=== PATIENT | male | born 1975 | race Hispanic/Latino ===

== ENCOUNTER 2021-09-14 18:55 | Observation (INO) | payer BC ==
--- NOTE | 2021-09-14 19:29 | Emergency Department Report ---
ED Syncope HPI - General Chief Complaint: Syncope Stated Complaint: SYNCOPE Time Seen by Provider: 09/14/21 19:20 Source: patient, EMS - History of Present Illness Initial Comments: Patient is 46 years old male with history of hypertension and hyperlipidemia. Patient brought to the emergency room via EMS for evaluation of syncopal episode. Patient stated that he was driving from [place] to [place] when all of a sudden his noticed that he is hold his chest and then he passed out. Patient stated that he is back to normal now except for generalized weakness. Patient denied any focal weakness, numbness or tingling sensation. Stroke scale now 0. Timing/Prior Episodes: no prior history, single episode today Precipitating Factors: Positive: none Loss of Consciousness: prolonged (minutes) Current Symptoms: back to normal ED Review of Systems ROS: Stated complaint: SYNCOPE Other details as noted in HPI Comment: All other systems reviewed and negative Constitutional: denies: chills, fever ENT: denies: throat pain Cardiovascular: chest pain (gone). denies: palpitations Gastrointestinal: denies: abdominal pain, nausea, vomiting Musculoskeletal: denies: back pain Neurological: denies: headache, weakness, numbness, paresthesias, confusion, abnormal gait Psychiatric: denies: depression, auditory hallucinations, visual hallucinations, homicidal thoughts, suicidal thoughts ED Past Medical Hx - Past Medical History Hx Hypertension: Yes - Surgical History Past Surgical History?: No ED Physical Exam - General Limitations: Altered Mental Status General appearance: alert, in no apparent distress - Head Head exam: Present: atraumatic, normocephalic, normal inspection - Eye Eye exam: Present: normal appearance - ENT ENT exam: Present: normal exam, normal orophraynx, mucous membranes moist - Neck Neck exam: Present: normal inspection, full ROM. Absent: tenderness, meningismus - Respiratory Respiratory exam: Present: normal lung sounds bilaterally - Cardiovascular Cardiovascular Exam: Present: regular rate, normal rhythm, normal heart sounds - GI/Abdominal GI/Abdominal exam: Present: soft, normal bowel sounds. Absent: distended, tenderness, guarding, rebound, rigid, organomegaly, mass, bruit, pulsatile mass, hernia - Extremities Exam Extremities exam: Present: normal inspection, full ROM, normal capillary refill. Absent: tenderness - Back Exam Back exam: Present: normal inspection, full ROM. Absent: CVA tenderness (R), CVA tenderness (L) - Neurological Exam Neurological exam: Present: alert, oriented X3, CN II-XII intact, normal gait, reflexes normal. Absent: motor sensory deficit - Psychiatric Psychiatric exam: Present: normal mood - Skin Skin exam: Present: warm, intact, normal color ED Course Vital Signs 09/14/21 09/14/21 09/14/21 19:05 19:12 19:15 Temperature 97.9 F Pulse Rate 98 H Respiratory 18 Rate Blood Pressure 142/89 Blood Pressure 135/89 [Right] O2 Sat by Pulse 98 89 95 Oximetry 09/14/21 09/14/21 19:31 19:45 Temperature Pulse Rate 82 82 Respiratory 21 16 Rate Blood Pressure 136/86 132/89 Blood Pressure [Right] O2 Sat by Pulse 94 97 Oximetry ED Medical Decision Making - Lab Data Result diagrams: 09/14/21 19:33 09/14/21 19:33 - EKG Data -: EKG Interpreted by Me EKG shows normal: sinus rhythm Rate: normal - Radiology Data Radiology results: report reviewed - Medical Decision Making Patient is 46 years old male with history of hypertension and hyperlipidemia. Patient brought to the emergency room via EMS for evaluation of syncopal episode. Patient stated that he was driving from [place] to [place] when all of a sudden his noticed that he is hold his chest and then he passed out. Patient stated that he is back to normal now except for generalized weakness. Patient denied any focal weakness, numbness or tingling sensation. Stroke scale now 0. Patient remains symptoms free in the emergency room except for headache for which she received Tylenol. EKG showed sinus rhythm with incomplete right bundle branch block however there is no ST elevation. Labs reviewed and is unremarkable including negative troponin x2. CT brain is negative for acute finding. Chest x-ray is unremarkable. I discussed the patient with Dr. Waterman, he agreed to admit the patient for further management. Critical care attestation.: If time is entered above; I have spent that time in minutes in the direct care of this critically ill patient, excluding procedure time. ED Disposition Clinical Impression: Syncope and collapse Disposition: ADMITTED INPATIENT Is pt being admited?: Yes Condition: Stable Instructions: Syncope (ED)
[2021-09-14 19:52] LABS: Basophils % (Auto) 0.3 % (0.0-1.8); Eosinophils # (Auto) 0.1 K/mm3 (0.0-0.4); Eosinophils % (Auto) 0.6 % (0.0-4.3); Hematocrit 54.3 % (35.5-45.6); Hemoglobin 17.6 gm/dl (11.8-15.2); Lymphocytes # (Auto) 1.4 K/mm3 (1.2-5.4); Lymphocytes % (Auto) 12.2 % (13.4-35.0); Mean Corpuscular HGB Conc 33 % (32-34); Mean Corpuscular Volume 90 fl (84-94); Monocytes # (Auto) 0.6 K/mm3 (0.0-0.8); Monocytes % (Auto) 5.3 % (0.0-7.3); Platelet Count 211 K/mm3 (140-440); Red Blood Count 6.07 M/mm3 (3.65-5.03); Red Cell Distribution Width 13.2 % (13.2-15.2)
[2021-09-14 20:07] LABS: Alanine Aminotransferase 30 units/L (7-56); Albumin 4.8 g/dL (3.9-5); BUN/Creatinine Ratio 16; Blood Urea Nitrogen 21 mg/dL (9-20); Calcium 9.3 mg/dL (8.4-10.2); Hemolysis Index 10
[2021-09-14 20:14] LABS: Bilirubin,Urine NEG (Negative); Blood,Urine MOD (Negative); Color,Urine Straw (Yellow); Mucus,Urine FEW /HPF; RBC,Urine < 1.0 /HPF (0.0-6.0); Urobilinogen,Urine < 2.0 mg/dL (<2.0); WBC,Urine < 1.0 /HPF (0.0-6.0)
--- NOTE | 2021-09-14 20:15 | XRay Report ---
CHEST 1 VIEW INDICATION / CLINICAL INFORMATION: Syncope STUDY TIME: 1940 COMPARISON: None available. FINDINGS: SUPPORT DEVICES: None HEART / MEDIASTINUM: No significant abnormality. LUNGS / PLEURA: Poor degree of inspiration is seen. Mild atelectasis is noted in the right base. No d efinite acute infiltrates are seen. No pneumothorax. ADDITIONAL FINDINGS: No significant additional findings. IMPRESSION: No significant acute abnormality Signer Name: Durga Holman MD Signed: 09/14/2021 8:11 PM Workstation Name: [id number]
[2021-09-14 20:22] LABS: Bilirubin,Direct < 0.2 mg/dL (0-0.2)
[2021-09-14 20:22] LABS: Amphetamine Screen,Urine Negative; Benzodiazepines Screen,Urine Negative; Cannabinoid Screen,Urine Negative; Cocaine Screen,Urine Negative; Methadone Screen,Urine Negative; Opiate Screen,Urine Negative
--- NOTE | 2021-09-14 21:25 | Cat Scan Report ---
CT HEAD WITHOUT CONTRAST INDICATION / CLINICAL INFORMATION: Syncope. TECHNIQUE: All CT scans at this location are performed using CT dose reduction for ALARA by means of automated exposure control. COMPARISON: None available. FINDINGS: HEMORRHAGE: None. EXTRA-AXIAL SPACES: Normal in size and morphology for the patient's age. VENTRICULAR SYSTEM: Normal in size and morphology for the patient's age. CEREBRAL PARENCHYMA: No significant abnormality. No acute territorial infarct. MIDLINE SHIFT / HERNIATION: None. CEREBELLUM / BRAINSTEM: No significant abnormality. ORBITS: Normal as visualized. SOFT TISSUES: No significant abnormality. SKULL: No significant abnormality. PARANASAL SINUSES / MASTOID AIR CELLS: Normal as visualized. ADDITIONAL FINDINGS: None. IMPRESSION: 1. No acute intracranial abnormality. Signer Name: Jacob Salas MD Signed: 09/14/2021 9:20 PM Workstation Name: [email or web address]
[2021-09-14] MEDS ORDERED: ACETAMINOPHEN 500 MG TAB PO NR (21:30)
[2021-09-14] MEDS ORDERED: ONDANSETRON 4 MG/2 ML INJ IV PRN (23:31)
[2021-09-14] MEDS ORDERED: MORPHINE 2 MG/1 ML INJ IV PRN (23:31)
[2021-09-14] MEDS ORDERED: MAGNESIUM HYDROXIDE (MOM) ORAL LIQD UDC PO PRN (23:31)
[2021-09-14] MEDS ORDERED: ACETAMINOPHEN 325 MG TAB PO PRN (23:31)
[2021-09-14] MEDS ORDERED: MORPHINE 4 MG/1 ML INJ IV PRN (23:31)
--- NOTE | 2021-09-14 23:40 | History and Physical Report ---
History of Present Illness Date of examination: 09/14/21 Date of admission: 09/14/2021 Chief complaint: Syncope Collapse History of present illness: 46-year-old male with known history of hypertension and hyperlipidemia brought into the emergency room today by EMS for evaluation of syncopal episode. Was driving from [place] to [place] when his noticed that patient held his chest and suddenly passed out. There has been no history of seizure disorder. No history of urinary or fecal incontinence. No history of headache or dizziness prior to the travel. No fever or chills, no nausea vomiting and no abdominal pain. Patient was not involved in any motor vehicle crash. Upon arrival in the emergency room patient was back to his normal baseline and denies any complaints except for generalized weakness. Work-up in the emergency room today including EKG, troponins, CT scan of the head and labs were unremarkable. Patient has been admitted for evaluation of his syncope and collapse. Past History Past Medical History: hypertension, hyperlipidemia Past Surgical History: No surgical history Social history: no significant social history Family history: no significant family history Medications and Allergies Allergies Allergy/AdvReac Type Severity Reaction Status Date / Time No Known Allergies Allergy Verified 09/14/21 22:49 Active Meds: Active Medications Acetaminophen (Acetaminophen 500 Mg Tab) 1,000 mg PO ONCE NR Stop: 09/14/21 23:59 Last Admin: 09/14/21 22:55 Dose: 1,000 mg Documented by: Acetaminophen (Acetaminophen 325 Mg Tab) 650 mg PO Q4H PRN PRN Reason: Pain MILD(1-3)/Fever >100.5/ORNELAS Magnesium Hydroxide (Magnesium Hydroxide (Mom) Oral Liqd Udc) 30 ml PO Q4H PRN PRN Reason: Constipation Morphine Sulfate (Morphine 2 Mg/1 Ml Inj) 2 mg IV Q4H PRN PRN Reason: Pain, Moderate (4-6) Morphine Sulfate (Morphine 4 Mg/1 Ml Inj) 4 mg IV Q4H PRN PRN Reason: Pain , Severe (7-10) Ondansetron HCl (Ondansetron 4 Mg/2 Ml Inj) 4 mg IV Q8H PRN PRN Reason: Nausea And Vomiting Sodium Chloride (Sodium Chloride 0.9% 10 Ml Flush Syringe) 10 ml IV BID ANDRE Sodium Chloride (Sodium Chloride 0.9% 10 Ml Flush Syringe) 10 ml IV PRN PRN PRN Reason: LINE FLUSH Review of Systems Constitutional: no fever, no chills Ears, nose, mouth and throat: no nasal congestion, no sore throat Cardiovascular: no chest pain, no palpitations Respiratory: no cough, no shortness of breath Gastrointestinal: no abdominal pain, no nausea, no vomiting, no diarrhea Genitourinary Male: no dysuria, no hematuria, no flank pain Musculoskeletal: no neck pain, no low back pain Integumentary: no rash, no pruritis Neurological: syncope, no seizures, no headaches, no confusion Psychiatric: no anxiety, no depression Endocrine: no polyphagia, no polydipsia, no polyuria, no nocturia Exam - Constitutional Vitals: Temp Pulse Resp BP Pulse Ox 97.9 F 78 19 130/88 97 09/14/21 19:05 09/14/21 22:31 09/14/21 22:31 09/14/21 22:31 09/14/21 22:31 General appearance: Present: no acute distress, well-nourished - EENT Eyes: Present: PERRL, EOM intact. Absent: scleral icterus ENT: hearing intact, clear oral mucosa, dentition normal - Neck Neck: Present: supple, normal ROM - Respiratory Respiratory effort: normal Respiratory: bilateral: CTA - Cardiovascular Rhythm: regular Heart Sounds: Present: S1 & S2. Absent: systolic murmur, diastolic murmur, rub, click - Extremities Extremities: no ischemia, pulses intact, pulses symmetrical, No edema, normal temperature, normal color, Full ROM Peripheral Pulses: within normal limits - Abdominal General gastrointestinal: Present: soft, non-tender, non-distended, normal bowel sounds. Absent: mass - Integumentary Integumentary: Present: clear, warm, dry. Absent: rash - Musculoskeletal Musculoskeletal: strength equal bilaterally - Psychiatric Psychiatric: appropriate mood/affect, intact judgment & insight, memory intact, cooperative - Neurologic Neurologic: CNII-XII intact, no focal deficits, moves all extremities HEART Score - HEART Score Troponin: Troponin T < 0.010 ng/mL (0.00-0.029) 09/14/21 21:39 Results - Labs CBC & Chem 7: 09/14/21 19:33 09/14/21 19:33 Labs: Abnormal lab results 09/14/21 09/14/21 Range/Units 19:33 19:33 WBC 11.5 H (4.5-11.0) K/mm3 RBC 6.07 H (3.65-5.03) M/mm3 Hgb 17.6 H (11.8-15.2) gm/dl Hct 54.3 H (35.5-45.6) % Lymph % (Auto) 12.2 L (13.4-35.0) % Seg Neutrophils % 81.6 H (40.0-70.0) % Seg Neutrophils # 9.4 H (1.8-7.7) K/mm3 Sodium 134 L (137-145) mmol/L Chloride 93.2 L (98-107) mmol/L BUN 21 H (9-20) mg/dL Glucose 153 H (75-100) mg/dL Assessment and Plan - Patient Problems (1) Syncope and collapse Current Visit: Yes Status: Acute Plan to address problem: Etiology unclear. We will schedule patient for echocardiogram and carotid Doppler. Patient being closely monitored on telemetry. (2) Hypertension Current Visit: Yes Status: Acute Plan to address problem: We will resume routine home medications once reconciled and monitor vital signs closely. (3) Hyperlipidemia Current Visit: Yes Status: Acute Plan to address problem: We will monitor lipid profile. (4) DVT prophylaxis Current Visit: Yes Status: Acute Plan to address problem: Patient placed on subcutaneous heparin. (5) Full code status Current Visit: Yes Status: Acute Plan to address problem: Patient is full code.
[2021-09-15] MEDS: HEPARIN 5,000 UNIT/1 ML VIAL SUB-Q SCH ×2 (05:27→21:13)
[2021-09-15 06:00] LABS: INR 0.92 (0.87-1.13)
[2021-09-15 06:02] LABS: BUN/Creatinine Ratio 19; Blood Urea Nitrogen 17 mg/dL (9-20); Calcium 8.6 mg/dL (8.4-10.2); Hemolysis Index 7
--- NOTE | 2021-09-15 09:59 | Progress Note ---
Assessment and Plan Assessment and plan: 46-year-old male with known history of hypertension and hyperlipidemia brought into the emergency room today by EMS for evaluation of syncopal episode. The patient was driving from [place] to [place] when his noticed that patient held his chest and suddenly passed out. There has been no history of seizure disorder. No history of urinary or fecal incontinence. No history of headache or dizziness prior to the travel. Work-up in the emergency room today including EKG, troponins, CT scan of the head and labs were unremarkable. 09/15/2021. Await echocardiogram, carotid Doppler and cardiology consultation. History Interval history: No new issues overnight Hospitalist Physical - Constitutional Vitals: Temp Pulse Resp BP Pulse Ox 98.0 F 64 18 129/83 94 09/15/21 07:33 09/15/21 07:33 09/15/21 07:33 09/15/21 07:33 09/15/21 07:33 General appearance: Present: no acute distress, well-nourished - EENT Eyes: Present: PERRL, EOM intact ENT: hearing intact, clear oral mucosa, dentition normal - Neck Neck: Present: supple, normal ROM - Respiratory Respiratory effort: normal Respiratory: bilateral: CTA - Cardiovascular Rhythm: regular Heart Sounds: Present: S1 & S2. Absent: gallop, rub - Extremities Extremities: no ischemia, No edema, Full ROM - Abdominal General gastrointestinal: soft, non-tender, non-distended, normal bowel sounds - Integumentary Integumentary: Present: clear, warm, dry - Neurologic Neurologic: CNII-XII intact, moves all extremities HEART Score - HEART Score Troponin: Troponin T < 0.010 ng/mL (0.00-0.029) 09/14/21 21:39 Results - Labs CBC & Chem 7: 09/14/21 19:33 09/15/21 04:44 Labs: Laboratory Last Values WBC 11.5 K/mm3 (4.5-11.0) H 09/14/21 19:33 RBC 6.07 M/mm3 (3.65-5.03) H 09/14/21 19:33 Hgb 17.6 gm/dl (11.8-15.2) H 09/14/21 19:33 Hct 54.3 % (35.5-45.6) H 09/14/21 19:33 MCV 90 fl (84-94) 09/14/21 19:33 MCH 29 pg (28-32) 09/14/21 19:33 MCHC 33 % (32-34) 09/14/21 19:33 RDW 13.2 % (13.2-15.2) 09/14/21 19:33 Plt Count 211 K/mm3 (140-440) 09/14/21 19:33 Lymph % (Auto) 12.2 % (13.4-35.0) L 09/14/21 19:33 [place] % (Auto) 5.3 % (0.0-7.3) 09/14/21 19:33 Eos % (Auto) 0.6 % (0.0-4.3) 09/14/21 19:33 Baso % (Auto) 0.3 % (0.0-1.8) 09/14/21 19:33 Lymph # (Auto) 1.4 K/mm3 (1.2-5.4) 09/14/21 19:33 [place] # (Auto) 0.6 K/mm3 (0.0-0.8) 09/14/21 19:33 Eos # (Auto) 0.1 K/mm3 (0.0-0.4) 09/14/21 19:33 Baso # (Auto) 0.0 K/mm3 (0.0-0.1) 09/14/21 19:33 Seg Neutrophils % 81.6 % (40.0-70.0) H 09/14/21 19:33 Seg Neutrophils # 9.4 K/mm3 (1.8-7.7) H 09/14/21 19:33 PT 13.4 Sec. (12.2-14.9) 09/15/21 04:44 INR 0.92 (0.87-1.13) 09/15/21 04:44 D-Dimer < 135.00 ng/mlDDU (0-234) 09/14/21 19:33 Sodium 139 mmol/L (137-145) 09/15/21 04:44 Potassium 3.5 mmol/L (3.6-5.0) L 09/15/21 04:44 Chloride 98.4 mmol/L (98-107) 09/15/21 04:44 Carbon Dioxide 24 mmol/L (22-30) 09/15/21 04:44 Anion Gap 20 mmol/L 09/15/21 04:44 BUN 17 mg/dL (9-20) 09/15/21 04:44 Creatinine 0.9 mg/dL (0.8-1.3) 09/15/21 04:44 Estimated GFR > 60 ml/min 09/15/21 04:44 BUN/Creatinine Ratio 19 % 09/15/21 04:44 Glucose 132 mg/dL (75-100) H 09/15/21 04:44 Calcium 8.6 mg/dL (8.4-10.2) 09/15/21 04:44 Total Bilirubin 0.20 mg/dL (0.1-1.2) 09/14/21 19:33 Direct Bilirubin < 0.2 mg/dL (0-0.2) 09/14/21 19:33 Indirect Bilirubin 0.0 mg/dL 09/14/21 19:33 AST 21 units/L (5-40) 09/14/21 19:33 ALT 30 units/L (7-56) 09/14/21 19:33 Alkaline Phosphatase 62 units/L (35-129) 09/14/21 19:33 Troponin T < 0.010 ng/mL (0.00-0.029) 09/14/21 21:39 Total Protein 7.3 g/dL (6.3-8.2) 09/14/21 19:33 Albumin 4.8 g/dL (3.9-5) 09/14/21 19:33 Albumin/Globulin Ratio 1.9 % 09/14/21 19:33 Urine Color Straw (Yellow) 09/14/21 19:52 Urine Turbidity Clear (Clear) 09/14/21 19:52 Urine pH 5.0 (5.0-7.0) 09/14/21 19:52 Ur Specific [place] 1.014 (1.003-1.030) 09/14/21 19:52 Urine Protein 100 mg/dl mg/dL (Negative) 09/14/21 19:52 Urine Glucose (UA) Neg mg/dL (Negative) 09/14/21 19:52 Urine Ketones Neg mg/dL (Negative) 09/14/21 19:52 Urine Blood Mod (Negative) 09/14/21 19:52 Urine Nitrite Neg (Negative) 09/14/21 19:52 Urine Bilirubin Neg (Negative) 09/14/21 19:52 Urine Urobilinogen < 2.0 mg/dL (<2.0) 09/14/21 19:52 Ur Leukocyte Esterase Neg (Negative) 09/14/21 19:52 Urine WBC (Auto) < 1.0 /HPF (0.0-6.0) 09/14/21 19:52 Urine RBC (Auto) < 1.0 /HPF (0.0-6.0) 09/14/21 19:52 U Epithel Cells (Auto) < 1.0 /HPF (0-13.0) 09/14/21 19:52 Urine Mucus Few /HPF 09/14/21 19:52 Urine Opiates Screen Negative 09/14/21 Unknown Urine Methadone Screen Negative 09/14/21 Unknown Ur Barbiturates Screen Negative 09/14/21 Unknown Ur Phencyclidine Scrn Negative 09/14/21 Unknown Ur Amphetamines Screen Negative 09/14/21 Unknown U Benzodiazepines Scrn Negative 09/14/21 Unknown Urine Cocaine Screen Negative 09/14/21 Unknown U Marijuana (THC) Screen Negative 09/14/21 Unknown Drugs of Abuse Note Disclamer 09/14/21 Unknown Mckeon/IV: Voiding Method Toilet Active Medications - Current Medications Current Medications: Generic Name Dose Route Start Last Admin Trade Name Freq PRN Reason Stop Dose Admin Acetaminophen 650 mg 09/14/21 23:31 Acetaminophen 325 Mg Tab PO Q4H PRN Pain MILD(1-3)/Fever >100.5/ORNELAS Heparin Sodium (Porcine) 5,000 unit 09/15/21 06:00 09/15/21 05:27 Heparin 5,000 Unit/1 Ml Vial SUB-Q 5,000 unit Q8HR ANDRE Administration Magnesium Hydroxide 30 ml 09/14/21 23:31 Magnesium Hydroxide (Mom) Oral Liqd Udc PO Q4H PRN Constipation Morphine Sulfate 2 mg 09/14/21 23:31 Morphine 2 Mg/1 Ml Inj IV Q4H PRN Pain, Moderate (4-6) Morphine Sulfate 4 mg 09/14/21 23:31 Morphine 4 Mg/1 Ml Inj IV Q4H PRN Pain , Severe (7-10) Ondansetron HCl 4 mg 09/14/21 23:31 Ondansetron 4 Mg/2 Ml Inj IV Q8H PRN Nausea And Vomiting Sodium Chloride 10 ml 09/15/21 10:00 Sodium Chloride 0.9% 10 Ml Flush Syringe IV BID ANDRE Sodium Chloride 10 ml 09/14/21 23:31 Sodium Chloride 0.9% 10 Ml Flush Syringe IV PRN PRN LINE FLUSH
--- NOTE | 2021-09-15 10:24 | Consultation ---
History of Present Illness Consult date: 09/15/21 Consult reason: syncope History of present illness: 46-year-old man who presented to the emergency room following a syncope. He was on a long distance trip, from [place] to [place], [address] his noticed him slumped over and was unconscious for a period of time. There was diaphoresis, patient states that he bit his tongue but no seizures where reported. He is now fully awake and alert and oriented x3, denies any palpitations or chest pain or unusual shortness of breath. There is no history of prior syncope, no significant cardiac history. Past medical history only of hypertension for which he takes amlodipine. ECG was normal sinus rhythm, left ventricle hypertrophy by voltage, otherwise normal ECG. Serial cardiac enzymes were normal. Chest x-ray was normal-sized cardiac silhouette and clear lungs. Today he underwent an echocardiogram which shows normal left ventricular systolic function, mild concentric left ventricle hypertrophy, trace to mild mitral regurgitation and mild aortic regurgitation. Full report of the echocardiogram is pending. Past History Past Medical History: hypertension, hyperlipidemia Past Surgical History: No surgical history Social history: no significant social history Family history: no significant family history Medications and Allergies Allergies Allergy/AdvReac Type Severity Reaction Status Date / Time No Known Allergies Allergy Verified 09/14/21 22:49 Home Medications Medication Instructions Recorded Confirmed Last Taken Type Sertraline [Zoloft] 100 mg PO QDAY 09/15/21 09/15/21 Unknown History Simvastatin 20 mg PO DAILY 09/15/21 09/15/21 Unknown History Testosterone Cypionate 100 mg IM Q5D 09/15/21 09/15/21 Unknown History [Depo-Testosterone] amLODIPine [Norvasc] 5 mg PO DAILY 09/15/21 09/15/21 Unknown History hydroCHLOROthiazide [Hctz] 12.5 mg PO QDAY 09/15/21 09/15/21 Unknown History Active Meds: Active Medications Acetaminophen (Acetaminophen 325 Mg Tab) 650 mg PO Q4H PRN PRN Reason: Pain MILD(1-3)/Fever >100.5/ORNELAS Heparin Sodium (Porcine) (Heparin 5,000 Unit/1 Ml Vial) 5,000 unit SUB-Q Q8HR ANDRE Last Admin: 09/15/21 05:27 Dose: 5,000 unit Documented by: Magnesium Hydroxide (Magnesium Hydroxide (Mom) Oral Liqd Udc) 30 ml PO Q4H PRN PRN Reason: Constipation Morphine Sulfate (Morphine 2 Mg/1 Ml Inj) 2 mg IV Q4H PRN PRN Reason: Pain, Moderate (4-6) Morphine Sulfate (Morphine 4 Mg/1 Ml Inj) 4 mg IV Q4H PRN PRN Reason: Pain , Severe (7-10) Ondansetron HCl (Ondansetron 4 Mg/2 Ml Inj) 4 mg IV Q8H PRN PRN Reason: Nausea And Vomiting Sodium Chloride (Sodium Chloride 0.9% 10 Ml Flush Syringe) 10 ml IV BID ANDRE Sodium Chloride (Sodium Chloride 0.9% 10 Ml Flush Syringe) 10 ml IV PRN PRN PRN Reason: LINE FLUSH Review of Systems Cardiovascular: syncope, no chest pain, no orthopnea, no palpitations, no rapid/irregular heart beat, no edema, no lightheadedness, no shortness of breath Physical Examination Vital Signs Temp Pulse Resp BP Pulse Ox 97.9 F 98 H 18 135/89 98 09/14/21 19:05 09/14/21 19:05 09/14/21 19:05 09/14/21 19:05 09/14/21 19:05 General appearance: no acute distress HEENT: Positive: PERRL Neck: Positive: neck supple Cardiac: Positive: Reg Rate and Rhythm Lungs: Positive: clear to auscultation Neuro: Positive: Grossly Intact Abdomen: Positive: Soft Male genitourinary: Positive: deferred Skin: Positive: Clear Extremities: Absent: edema Results 09/14/21 19:33 09/15/21 04:44 Cardiac Enzymes 09/14/21 Range/Units 19:33 AST 21 (5-40) units/L Coagulation 09/15/21 Range/Units 04:44 PT 13.4 (12.2-14.9) Sec. INR 0.92 (0.87-1.13) CBC 09/14/21 Range/Units 19:33 WBC 11.5 H (4.5-11.0) K/mm3 RBC 6.07 H (3.65-5.03) M/mm3 Hgb 17.6 H (11.8-15.2) gm/dl Hct 54.3 H (35.5-45.6) % Plt Count 211 (140-440) K/mm3 Lymph # (Auto) 1.4 (1.2-5.4) K/mm3 [place] # (Auto) 0.6 (0.0-0.8) K/mm3 Eos # (Auto) 0.1 (0.0-0.4) K/mm3 Baso # (Auto) 0.0 (0.0-0.1) K/mm3 Comprehensive Metabolic Panel 09/14/21 09/15/21 Range/Units 19:33 04:44 Sodium 134 L 139 (137-145) mmol/L Potassium 3.6 3.5 L (3.6-5.0) mmol/L Chloride 93.2 L 98.4 (98-107) mmol/L Carbon Dioxide 23 24 (22-30) mmol/L BUN 21 H 17 (9-20) mg/dL Creatinine 1.3 0.9 (0.8-1.3) mg/dL Glucose 153 H 132 H (75-100) mg/dL Calcium 9.3 8.6 (8.4-10.2) mg/dL Direct Bilirubin < 0.2 (0-0.2) mg/dL Indirect Bilirubin 0.0 mg/dL AST 21 (5-40) units/L ALT 30 (7-56) units/L Alkaline Phosphatase 62 (35-129) units/L Total Protein 7.3 (6.3-8.2) g/dL Albumin 4.8 (3.9-5) g/dL EKG interpretations - Telemetry EKG Rhythm: Sinus Rhythm Assessment and Plan - Patient Problems (1) Syncope and collapse Current Visit: Yes Status: Acute Plan to address problem: Patient presented with syncope, differential diagnosis include a vasodepressor reaction versus neurocardiogenic syncope. ECG, enzymes and echocardiogram appear unremarkable. Telemetry monitoring so far has not reported any s ignificant dysrhythmias. We will recommend a CT angiogram of the chest, PE protocol, given the patient's event occurring at the end of a 4-hour drive. If negative, we will order a regular stress test predischarge tomorrow.
--- NOTE | 2021-09-15 13:49 | Vascular Lab Report ---
DUPLEX DOPPLER ULTRASOUND CAROTID, BILATERAL INDICATION / CLINICAL INFORMATION: Syncope. COMPARISON: None available. FINDINGS: RIGHT CAROTID: No significant atherosclerotic plaque. - PLAQUE ESTIMATE (%): < 50% - CCA velocity: 98 cm/sec. - ICA peak systolic velocity: 83 cm/sec. - ICA/CCA PSV Ratio: Less than 2. Right Vertebral Artery: Antegrade flow. LEFT CAROTID: No significant atherosclerotic plaque. - PLAQUE ESTIMATE (%): < 50% - CCA velocity: 86 cm/sec. - ICA peak systolic velocity: 65 cm/sec. - ICA/CCA PSV Ratio: Less than 2. Left Vertebral Artery: Antegrade flow. IMPRESSION: 1. Right Internal Carotid Artery: Normal. No stenosis. 2. Left Internal Carotid Artery: Normal. No stenosis. Velocity criteria are extrapolated from diameter data as defined by the Society of Radiologists in Ul trasound Consensus Conference, Radiology 2003; 229;340-346. NO STENOSIS (NORMAL) - Plaque = none; ICA PSV < 125 cm/sec; ICA/CCA PSV Ratio < 2.0 <50% STENOSIS - Plaque < 50%; ICA PSV < 125 cm/sec; ICA/CCA PSV Ratio < 2.0 50-69% STENOSIS - Plaque > 50%; ICA PSV = 125-230 cm/sec; ICA/CCA PSV Ratio = 2.0-4.0 >70% BUT <100% STENOSIS - Plaque > 50%; ICA PSV > 230 cm/sec; ICA/CCA PSV Ratio > 4.0 NEAR OCCLUSION - Plaque = visible lumen; ICA PSV = high/low/none; ICA/CCA PSV Ratio = variable TOTAL OCCLUSION - Plaque = no lumen; ICA PSV = none; ICA/CCA PSV Ratio = N/A Scribed by: Araceli Aguilar RDMS, HARRIETTT Scribed: 09/15/2021 11:26 AM I have reviewed the images, agree with this report, and edited this report as needed. Signer Name: Jordan Hodgson MD Signed: 09/15/2021 1:45 PM Workstation Name: [id number]
--- NOTE | 2021-09-15 15:26 | Cat Scan Report ---
CTA CHEST WITH CONTRAST INDICATION / CLINICAL INFORMATION: Syncope/PE protocol OMNI 350 100ML. TECHNIQUE: Axial CT images were obtained through the chest after injection of IV contrast. 3 plane IN P and/or 3D reconstructions were produced. All CT scans at this location are performed using CT dose reduction for ALARA by means of automated exposure control. COMPARISON: None available. FINDINGS: PULMONARY ARTERIES: No pulmonary emboli. THORACIC AORTA: No significant abnormality. HEART: No significant abnormality. CORONARY ARTERY CALCIFICATION: None. MEDIASTINUM / LAURA: No significant abnormality. PLEURA: No pleural effusion. No pneumothorax. LUNGS: No acute air space or interstitial disease. ADDITIONAL FINDINGS: None. UPPER ABDOMEN: There is a approximately 5.5 x 6.3 cm enhancing lesion in the right hepatic lobe, whic h appears to be supplied by a replaced right hepatic artery off the SMA. SKELETAL STRUCTURES: No significant osseous abnormality. IMPRESSION: 1. No CT evidence for pulmonary embolism. 2. No acute intrathoracic abnormality. 3. Incidental enhancing lesion in the right hepatic lobe is nonspecific but favors hemangioma. Recomm end dedicated multiphase abdominal CT. Signer Name: Jacob aSlas MD Signed: 09/15/2021 3:21 PM Workstation Name: [id number]
--- NOTE | 2021-09-15 18:36 | Electrocardiograph Report ---
[facility] Test Date: 2021-09-14 Test Time: 21:12:43 Pat Name: REJI EGAN Department: Room: A466 1 Gender: M Social Service Coordinator: jozef : 1975 Requested By: SHELIA MEDINA Order Number: [id number] Reading MD: Elaine Worrell Measurements Intervals [place] Rate: 83 P: 42 MS: 137 QRS: -26 QRSD: 113 T: -4 QT: 378 QTc: 444 Interpretive Statements Sinus rhythm Incomplete right bundle branch block Left ventricular hypertrophy No previous ECG available for comparison Electronically Signed On 09-15-2021 18:36:21 EST by Elaine Worrell
[2021-09-16] MEDS ORDERED: REGADENOSON 0.4 MG/5 ML INJ IV ONE (07:48)
[2021-09-16] MEDS: HEPARIN 5,000 UNIT/1 ML VIAL SUB-Q SCH ×2 (07:51→07:52)
--- NOTE | 2021-09-16 08:16 | Discharge Summary ---
Providers - Providers Date of Admission: 09/15/21 00:20 Date of discharge: 09/16/21 Attending physician: NAIMA MESSER 09/15/21 09:04 Consult to Physician [CONS] Routine Comment: Consulting Provider: JIM ALBERTO Physician Instructions: Reason For Exam: syncope Primary care physician: ACCOUNTING SYSTEM EXPERT Hospitalization Reason for admission: syncope Condition: Stable Hospital course: 46-year-old male with past medical history of hypertension presented through the emergency room with diagnosis of syncope. Patient had no reports of any seizure activity. No bowel or bladder incontinence. No history of prior syncope. Cardiology was consulted for syncope. Patient was noted to have EKG with normal sinus rhythm and serial cardiac isoenzymes were also normal. Chest x-ray was unremarkable. Patient had echocardiogram which revealed left ventricular systolic function normal with mild concentric left ventricular hypertrophy and trace to mild mitral regurgitation and mild aortic regurgitation. Carotid Doppler was also found to be negative. D-dimer and CTA of the chest were found to be normal. Patient is to undergo stress test today per cardiology recommendations. If stress test is negative, patient will be discharged home. Dedicated discharge time 32 minutes Disposition: 01 HOME / SELF CARE / HOMELESS Final Discharge Diagnosis (Prints w/discharge instructions): Hypertension, syncope Core Measure Documentation - Palliative Care Palliative Care/ Comfort Measures: Not Applicable - Core Measures Any of the following diagnoses?: none Exam - Constitutional Vitals: Temp Pulse Resp BP Pulse Ox 97.7 F 58 L 16 125/79 96 09/16/21 03:33 09/16/21 04:00 09/16/21 03:33 09/16/21 03:33 09/16/21 03:33 General appearance: Present: no acute distress, well-nourished - EENT Eyes: Present: PERRL ENT: hearing intact, clear oral mucosa - Neck Neck: Present: supple, normal ROM - Respiratory Respiratory effort: normal Respiratory: bilateral: CTA - Cardiovascular Heart Sounds: Present: S1 & S2. Absent: rub, click - Extremities Extremities: pulses symmetrical, No edema Peripheral Pulses: within normal limits - Abdominal General gastrointestinal: Present: soft, non-tender, non-distended, normal bowel sounds Male genitourinary: Present: normal - Integumentary Integumentary: Present: clear, warm, dry - Musculoskeletal Musculoskeletal: gait normal, strength equal bilaterally - Psychiatric Psychiatric: appropriate mood/affect, intact judgment & insight - Neurologic Neurologic: CNII-XII intact, moves all extremities Plan Activity: advance as tolerated Weight Bearing Status: Weight Bear as Tolerated Diet: regular Follow up with: PRIMARY CARE, [Primary Care Provider] - 3-5 Days
--- NOTE | 2021-09-16 09:38 | Event Note ---
Date: 09/16/21 Exercise stress test completed. 12 min Jm exercise, no CP, no ST changes, no dysrhythmias. Normal exercise ECG test. Cardiac inpatient workup completed. OK for cardiac discharge, follow up with primary drug coordinator on return home.
[2021-09-16 09:57] VITALS: BP 138/87
--- NOTE | 2021-09-16 10:04 | Treadmill Report ---
DATE OF SERVICE: 09/16/2021 STRESS TEST REPORT REASON FOR STUDY: Syncope. DESCRIPTION OF PROCEDURE: The patient exercised for 12 minutes of a Jm protocol, completing stage 4 and achieving 13 METs. Peak heart rate was 156 beats per minute. Peak blood pressure was 158/89. There was no chest pain. Test was stopped for fatigue. Baseline ECG was sinus rhythm. With exercise, there were no ST changes of ischemia. No significant dysrhythmias were noted. CONCLUSION: 1. Excellent exercise capacity. 2. No chest pain with exercise. 3. No ST changes of ischemia. 4. No significant dysrhythmias. This is a normal exercise ECG test. TID: [id number] RECEIPT: [id number] TING
--- NOTE | 2021-09-16 14:43 | Treadmill Report ---
[facility] Test Date: 2021-09-16 Test Time: 09:23:00 Pat Name: REJI EGAN Department: Room: A466 1 Gender: M Upper Stitcher: Christy Hedrick : 1975 Requested By: ELAINE ALBERTO Order Number: [id number] Reading MD: Elaine Alberto Interpretive Statements See dictated report Electronically Signed On 09-16-2021 14:42:29 EST by Elaine Alberto
== END 2021-09-16 10:17 | disposition home or self-care (01) ==
LOC: ED 18:55 → 4A 09-15 00:20
PROVIDERS: ADMIT Internal Medicine Geriatric Medicine; ATTEND Hospitalist
DX: R55 Syncope and collapse (principal); I10 Essential (primary) hypertension; E78.5 Hyperlipidemia, unspecified; Z79.899 Other long term (current) drug therapy; Z98.890 Other specified postprocedural states
CPT/HCPCS: 36415; 70450; 71045; 71275; 80048; 80076; 80307; 81001; 84484; 85025; 85379; 85610; 93005; 93017; 93306; 93880; 96372; 99285; G0378; J1644; Q9967